=== PATIENT | female | born 1950 | race Caucasian/White ===

== ENCOUNTER 2020-09-06 11:59 | Emergency (ER) | payer OTHER ==
--- NOTE | 2020-09-06 13:14 | RAD REPORT ---
EXAM DESCRIPTION: CT - Ct Stroke Brain Wo Cont - 09/06/2020 1:01 pm CLINICAL HISTORY: DIZZINESS Headache, drowsiness, CVA symptomology COMPARISON: No comparisons TECHNIQUE: All CT scans are performed using dose optimization technique as appropriate and may inclu de automated exposure control or mA/KV adjustment according to patient size. FINDINGS: No intracranial hemorrhage, hydrocephalus or extra-axial fluid collection.No areas of brai n edema or evidence of midline shift. The paranasal sinuses and mastoids are clear. The calvarium is intact. IMPRESSION: No acute intracranial abnormality. The findings were discussed with Marie in the emergency room On 09/06/2020 at 1:05 p.m. by griffino brooke.
[2020-09-06 13:28] LABS: Absolute Lymphocytes (CBC) 1.7 K/uL (0.7-4.9); Basophils % 0.6 % (0-1.3); Lymphocytes % 27.9 % (15.3-44.8); MPV 7.8 fL (7.6-11.3); RBC Red Blood Cell Count 4.62 M/uL (3.86-4.86)
[2020-09-06 13:35] LABS: Protime INR 0.94
[2020-09-06 13:51] LABS: Potassium 3.9 mmol/L (3.5-5.1)
[2020-09-06 13:55] LABS: Urine Blood NEGATIVE (NEG); Urine Glucose NEGATIVE (NEG); Urine Protein NEGATIVE (NEG); Urine Specific Gravity 1.015 (1.005-1.030); Urine pH 7.5 (5.0-7.0)
--- NOTE | 2020-09-06 14:04 | RAD REPORT ---
EXAM DESCRIPTION: RAD - Chest Single View - 09/06/2020 1:50 pm CLINICAL HISTORY: dizziness COMPARISON: None TECHNIQUE: AP portable chest image was obtained 09/06/2020 1:50 pm . FINDINGS: Lungs are clear. Heart and vasculature are normal. No measurable pleural effusion and no p neumothorax. No acute bony abnormality seen. No acute aortic finding. Calcifications are present. Rig ht hemidiaphragm elevation is present. IMPRESSION: No acute cardiopulmonary process.
--- NOTE | 2020-09-06 14:19 | EDPHYS ---
Physician Documentation [facility] Name: Deyanira Caal Age: 69 yrs Sex: Female : 1950 Arrival Date: 09/06/2020 Time: 12:09 Bed 17 Private MD: ED Physician Jonnathan Wylie HPI: 09/06 13:27 This 69 yrs old Female presents to ER via EMS with complaints of Dizziness. kb 13:27 The patient presents with dizziness. Onset: The symptoms/episode began/occurred just kb prior to arrival. Context: occurred indoors, occurred while the patient was walking, just prior to the episode the patient experienced no apparent symptoms. Modifying factors: The symptoms are alleviated by nothing, the symptoms are aggravated by nothing. Associated signs and symptoms: The patient has no apparent associated signs or symptoms. Severity of symptoms: At their worst the symptoms were moderate in the emergency department the symptoms have resolved. Patient's baseline: Neuro: alert and fully oriented, Motor: no deficits, Ambulation: walks without assistance, Speech: normal. The patient has not experienced similar symptoms in the past. The patient has not recently seen a physician. Pt reports she was walking around an apartment when she became dizzy (room spinning) so she sat on the bed. States the dizziness subsided after 15-20 minutes. Reports symptoms have completely resolved at this time and has no complaints. No shortness of breath, syncope, fall, chest pain. . Historical: - Allergies: 12:14 Keflex; ph - Home Meds: 12:14 amlodipine oral [Active]; losartan oral oral [Active]; ph - PMHx: 12:14 Hypertension; ph - Immunization history:: Adult Immunizations not up to date. - Social history:: Smoking status: Patient/guardian denies using tobacco, the patient reports quitting approximately 37 years ago. ROS: 13:26 Constitutional: Negative for fever, chills, and weight loss, Cardiovascular: Negative kb for chest pain, palpitations, and edema, Respiratory: Negative for shortness of breath, cough, wheezing, and pleuritic chest pain, Abdomen/GI: Negative for abdominal pain, nausea, vomiting, diarrhea, and constipation, Back: Negative for injury and pain, MS/Extremity: Negative for injury and deformity, Skin: Negative for injury, rash, and discoloration. 13:26 Neuro: Positive for dizziness, Negative for altered mental status, gait disturbance, headache, hearing loss, loss of consciousness, numbness, seizure activity, speech changes, syncope, near syncope, tingling, tinnitus, tremor, visual changes, weakness. Exam: 13:26 Constitutional: This is a well developed, well nourished patient who is awake, alert, kb and in no acute distress. Head/Face: Normocephalic, atraumatic. Chest/axilla: Normal chest wall appearance and motion. Nontender with no deformity. No lesions are appreciated. Cardiovascular: Regular rate and rhythm with a normal S1 and S2. No gallops, murmurs, or rubs. Normal PMI, no JVD. No pulse deficits. Respiratory: Lungs have equal breath sounds bilaterally, clear to auscultation and percussion. No rales, rhonchi or wheezes noted. No increased work of breathing, no retractions or nasal flaring. Abdomen/GI: Soft, non-tender, with normal bowel sounds. No distension or tympany. No guarding or rebound. No evidence of tenderness throughout. Skin: Warm, dry with normal turgor. Normal color with no rashes, no lesions, and no evidence of cellulitis. MS/ Extremity: Pulses equal, no cyanosis. Neurovascular intact. Full, normal range of motion. Neuro: Awake and alert, GCS 15, oriented to person, place, time, and situation. Cranial nerves II-XII grossly intact. Motor strength 5/5 in all extremities. Sensory grossly intact. Cerebellar exam normal. Normal gait. 13:43 ECG was reviewed by the Attending Physician. Vital Signs: 12:09 BP 151 / 74; Pulse 68; Resp 18; Temp 98.3; Pulse Ox 95% on R/A; Weight 75.3 kg; Height ph 5 ft. 5 in. (165.10 cm); 13:47 BP 138 / 80; Pulse 65; Resp 18; Pulse Ox 100% on R/A; ph 14:42 BP 158 / 77; Pulse 69; Resp 16; Temp 97.9; Pulse Ox 100% on R/A; ph 12:09 Body Mass Index 27.62 (75.30 kg, 165.10 cm) ph MDM: 13:01 Patient medically screened. 13:26 Data reviewed: vital signs, nurses notes. Data interpreted: Pulse oximetry: on room air kb is 95 %. Interpretation: normal. 14:17 Counseling: I had a detailed discussion with the patient and/or guardian regarding: the kb historical points, exam findings, and any diagnostic results supporting the discharge/admit diagnosis, lab results, radiology results, the need for outpatient follow up, a family practitioner, to return to the emergency department if symptoms worsen or persist or if there are any questions or concerns that arise at home. 09/06 12:53 Order name: Basic Metabolic Panel; Complete Time: 13:52 sv 09/06 12:53 Order name: CBC with Diff; Complete Time: 13:39 sv 09/06 12:53 Order name: Protime (+inr); Complete Time: 13:49 sv 09/06 12:53 Order name: Ptt, Activated; Complete Time: 13:49 sv 09/06 13:22 Order name: Glucose, Ancillary Testing; Complete Time: 13:24 EDMS 09/06 13:24 Order name: Urine Dipstick--Ancillary (enter results); Complete Time: 13:59 eb 09/06 12:53 Order name: CT Stroke Brain w/o Contrast; Complete Time: 13:23 sv 09/06 12:53 Order name: Stroke CXR 1 View; Complete Time: 14:07 sv 09/06 12:53 Order name: EKG; Complete Time: 12:54 sv 09/06 12:53 Order name: Accucheck; Complete Time: 13:12 sv 09/06 12:53 Order name: Cardiac monitoring; Complete Time: 13:12 sv 09/06 12:53 Order name: EKG - Nurse/Tech; Complete Time: 13:39 sv 09/06 12:53 Order name: IV Saline Lock; Complete Time: 13:12 sv 09/06 12:53 Order name: Labs collected and sent; Complete Time: 13:12 sv 09/06 12:53 Order name: NPO; Complete Time: 13:12 sv 09/06 12:53 Order name: O2 Per Protocol; Complete Time: 13:12 sv 09/06 12:53 Order name: O2 Sat Monitoring; Complete Time: 13:12 sv 09/06 12:53 Order name: Stroke Swallow Screen; Complete Time: 13:46 sv EC: Rate is 64 beats/min. Rhythm is regular. QRS [place] is Normal. [place] interval is normal at kb 170 msec. QRS interval is normal at 84 msec. QT interval is normal at 426 msec. Administered Medications: No medications were administered Disposition: 15:47 Co-signature as Attending Physician, Jonnathan Wylie MD I agree with the assessment and kdr plan of care. Disposition: 09/06/20 14:18 Discharged to Home. Impression: Dizziness and giddiness. - Condition is Stable. - Discharge Instructions: Dizziness, [id number]. - Medication Reconciliation Form, Thank You Letter, Antibiotic Education, Prescription Opioid Use form. - Follow up: Emergency Department; When: As needed; Reason: Worsening of condition. Follow up: Private Physician; When: 2 - 3 days; Reason: Recheck today's complaints, Continuance of care, Re-evaluation by your physician. Signatures: Dispatcher [employer] EDPhoebe Caban, KIESHA-C APPRENTICE INSTRUMENT TECHNICIAN-Jia Prince, RN RN Jonnathan Escobar MD MD [facility] Keeley Wooten RN RN ph Corrections: (The following items were deleted from the chart) 14:57 14:18 09/06/2020 14:18 Discharged to Home. Impression: Dizziness and giddiness. ph Condition is Stable. Forms are Medication Reconciliation Form, Thank You Letter, Antibiotic Education, Prescription Opioid Use. Follow up: Emergency Department; When: As needed; Reason: Worsening of condition. Follow up: Private Physician; When: 2 - 3 days; Reason: Recheck today's complaints, Continuance of care, Re-evaluation by your physician. kb
--- NOTE | 2020-09-06 14:19 | ER ---
Nurse's Notes [facility] Name: Deyanira Caal Age: 69 yrs Sex: Female : 1950 Arrival Date: 09/06/2020 Time: 12:09 Bed 17 Private MD: Diagnosis: Dizziness and giddiness Presentation: 09/06 12:09 Chief complaint: EMS states: Pt reports that she was walking to the restroom when she ph had an episode of dizziness, felt unsteady but was assisted by granddaughter and did not fall, dizziness has since resolved, orthostatics negative, BP 140/60 HR 70s, EKG normal, pt denies chest pain, SOB, or weakness, reports headache in back of head, also states that she has "walked more than normal today". Coronavirus screen: Client denies travel out of the [place] in the last 14 days. Ebola Screen: No symptoms or risks identified at this time. Initial Sepsis Screen: Does the patient meet any 2 criteria? No. Patient's initial sepsis screen is negative. Does the patient have a suspected source of infection? No. Patient's initial sepsis screen is negative. Risk Assessment: Do you want to hurt yourself or someone else? Patient reports no desire to harm self or others. Onset of symptoms was September 06, 2020. 12:09 Method Of Arrival: EMS: [facility] 12:09 Acuity: SUSIE 3 ph Historical: - Allergies: 12:14 Keflex; ph - Home Meds: 12:14 amlodipine oral [Active]; losartan oral oral [Active]; ph - PMHx: 12:14 Hypertension; ph - Immunization history:: Adult Immunizations not up to date. - Social history:: Smoking status: Patient/guardian denies using tobacco, the patient reports quitting approximately 37 years ago. Screenin:14 Abuse screen: Denies threats or abuse. Denies injuries from another. Nutritional ph screening: No deficits noted. Tuberculosis screening: No symptoms or risk factors identified. Fall Risk No fall in past 12 months (0 pts). No secondary diagnosis (0 pts). IV access (20 points). Ambulatory Aid- None/Bed Rest/Nurse Assist (0 pts). Gait- Normal/Bed Rest/Wheelchair (0 pts) Mental Status- Oriented to own ability (0 pts). Total Zavaleta Fall Scale indicates No Risk (0-24 pts). 13:47 Patient has been NPO before screening. The patient is alert, able to follow commands. ph The patient does not exhibit slurred or garbled speech The patient is not exhibiting difficulty speaking. The patient does not exhibit difficulty understanding words. The patient is able to swallow own secretions with no drooling or need for suction. Patient tolerated one teaspoon of water. No drooling, immediate coughing, gurgling, or clearing of the throat was noted. The patient tolerated 90mL of water. No drooling, immediate coughing, gurgling, or clearing of the throat was noted. The patient passed the bedside swallow screening. Oral medications may be given as ordered. Contact Physician for further diet orders. Assessment: 12:15 General: Appears in no apparent distress. comfortable, well groomed, Behavior is calm, ph cooperative, appropriate for age, Denies fever, feeling ill. Pain: Complains of pain in occipital area. Neuro: Level of Consciousness is awake, alert, obeys commands, Oriented to person, place, time, situation, Reports dizziness, 1 episode at home, denies at this time headache occipital area, Denies weakness. Cardiovascular: Reports fatigue, lightheadedness, Denies chest pain, nausea, shortness of breath, vomiting, Rhythm is sinus rhythm. Respiratory: Airway is patent Respiratory effort is even, unlabored, Respiratory pattern is regular, symmetrical. GI: Patient currently denies abdominal pain, diarrhea, nausea, vomiting. Derm: Skin is intact, is healthy with good turgor, Skin is pink, warm \\T\\ dry. Musculoskeletal: Circulation, motion, and sensation intact. Range of motion: intact in all extremities. 12:55 Reassessment: Pt taken to CT, accompanied by Jia DIAZ. ph 13:00 Reassessment: Back from CT, pt needing to urinate before going back to the room. Urine sv sample obtained and taken to the room at 1304. 14:00 Reassessment: Patient appears in no apparent distress at this time. Patient and/or ph family updated on plan of care and expected duration. Pain level reassessed. Patient is alert, oriented x 3, equal unlabored respirations, skin warm/dry/pink. 14:54 Reassessment: Patient appears in no apparent distress at this time. Patient and/or ph family updated on plan of care and expected duration. Pain level reassessed. Patient is alert, oriented x 3, equal unlabored respirations, skin warm/dry/pink. Vital Signs: 12:09 BP 151 / 74; Pulse 68; Resp 18; Temp 98.3; Pulse Ox 95% on R/A; Weight 75.3 kg; Height ph 5 ft. 5 in. (165.10 cm); 13:47 BP 138 / 80; Pulse 65; Resp 18; Pulse Ox 100% on R/A; ph 14:42 BP 158 / 77; Pulse 69; Resp 16; Temp 97.9; Pulse Ox 100% on R/A; ph 12:09 Body Mass Index 27.62 (75.30 kg, 165.10 cm) ph Vitals: 13:47 Cardiac Rhythm Assessment Sinus rhythm. ph ED Course: 12:09 Patient arrived in ED. ph 12:13 Triage completed. ph 12:14 Arm band placed on Patient placed in an exam room, on a stretcher, on moss gatherer, ph on pulse oximetry. 12:15 Patient has correct armband on for positive identification. Placed in gown. Bed in low ph position. Call light in reach. Side rails up X 1. bicycle service technician on. Pulse ox on. NIBP on. Door closed. Noise minimized. Warm blanket given. 12:55 Keeley Wooten, EMILY is Primary Nurse. ph 13:01 Phoebe Mack FNP-C is PHCP. kb 13:01 Jonnathan Wylie MD is Attending Physician. kb 13:02 CT Stroke Brain w/o Contrast In Process Unspecified. EDMS 13:08 Urine collected: clean catch specimen, clear. sv 13:10 Inserted saline lock: 20 gauge in right antecubital area, using aseptic technique. ph Blood collected. 13:51 Stroke CXR 1 View In Process Unspecified. EDMS 14:42 No provider procedures requiring assistance completed. ph 14:55 IV discontinued, intact, bleeding controlled, No redness/swelling at site. Pressure ph dressing applied. Administered Medications: No medications were administered Outcome: 14:18 Discharge ordered by . kb 14:55 Discharged to home ambulatory, with family. ph 14:55 Condition: good 14:55 Discharge instructions given to patient, Instructed on discharge instructions, follow up and referral plans. Demonstrated understanding of instructions, follow-up care. 14:57 Patient left the ED. ph Signatures: Dispatcher [employer] EDPhoebe Caban, KIESHA-Grisel POP-Jia Prince, RN RN Keeley Wooten RN RN
[2020-09-06 15:05] VITALS: O2SAT 100
[2020-09-06 15:07] VITALS: BP 158/77; TEMP 97.9
--- NOTE | 2020-09-07 09:33 | EKG ---
Test Date: 2020-09-06 Test Time: 13:35:19 Ramp Jockey: ARNOL MEASUREMENT RESULTS: Intervals: Rate: 64 AK: 170 QRSD: 84 QT: 426 QTc: 439 [place]: P: 61 AK: 170 QRS: -10 T: 33 INTERPRETIVE STATEMENTS: Normal sinus rhythm Normal ECG No previous ECG available for comparison Electronically Signed On 09-07-20 09:30:58 CDT by Tahir Epstein
== END 2020-09-06 14:57 | disposition home or self-care (01) ==
LOC: ER 11:59
DX: R42 Dizziness and giddiness (principal); I10 Essential (primary) hypertension; Z88.1 Allergy status to other antibiotic agents
CPT/HCPCS: 36415; 70450; 71045; 80048; 81003; 82947; 85025; 85610; 85730; 93005; 99284

== ENCOUNTER 2022-11-25 10:07 | Emergency (ER) | payer OTHER ==
--- OUTSIDE RECORDS SUMMARY | 2022-11-25 10:19 | XMS REPORT | Continuity of Care Document ---
:1950 Author Organization [facility] t Address [address] [place] [address] Care Team Providers Name Role Phone Pcp, Patient Does Not Have A Primary Care Physician +[id number] [facility]_SWHATBIC_[facility] Attending Clinician Unavailable Doctor Unassigned, [place] Attending Clinician Unavailable Provider, [facility] Attending Clinician Unavailable Lianna Brown Attending Clinician LIANNA PATEL Attending Clinician Unavailable GC_TIFFANIEHATBIC_[facility]_S Admitting Clinician Unavailable Payers Payer Name Policy Type Policy Number Effective Date Expiration Date S ource MEDICARE [place]: [id number] 2013 [employer] 00:00:00 [facility] [id number] [facility] SHARED [id number] SERVICES - [facility] ([facility]) Problems Condition Condition Condition Status Onset Resolution Last Treating Co mments Source Name Details Category Date Date Treatment Clinician Date 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 11-20 ity of 00:00: [address] Primary Primary Disease Active 2016-11 Univers hyperparat hyperparat 11-20 [place] hy[place] Senile Senile Disease Active 2016-11 Univers osteoporos osteoporos 11-20 it y of is is 00:00: [address] 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 11-20 ity of nodules nodules 00:00: [place] 00 [facility] 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 5-24 it y of steremia steremia 00:00: [place] 00 [facility] Hypercalce Hypercalce Disease Active U kariwinter melchor jill 5-12 ity of 00:00: [place] 00 Medical [facility] Hyperlipid Hyperlipid Disease Active U bronson selma emia 4-12 ity of 00:00: [place] 00 Medical Branch Gout Gout Disease Active Univers 4-12 ity of 00:00: [place] 00 [facility] Essential Essential Disease Active Uni vers hypertensi hypertensi 4-12 it y of on on 00:00: [place] 00 Medical Branch Allergies, Adverse Reactions, Alerts Allergy Allergy Status Severity Reaction(s) Onset Inactive Treating Comm ents Source Name Type Date Date Clinician Cephalex Propensi Active Unknown - Uni vers in ty to See comments 02-24 ity of adverse 00:00: [place] reaction 00 Medical s Branch CEPHALEX DRUG Active Unknown-Cmnt Un zev IN INGREDI 02-24 ity of 00:00: [place] 00 [facility] Social History Social Habit Start Date Stop Date Quantity Comments Source History of tobacco Cigarette Smoker University of use [facility] [place] [facility] Exposure to Not sure University of SARS-CoV-2 (event) [facility] [place] [facility] Alcohol intake 2021-04-19 2021-04-19 1.43 /d University of 00:00:00 00:00:00 [facility] [place] [facility] Cigarettes smoked 2016-02-25 2016-02-25 Univers ity of current (pack per 00:00:00 00:00:00 ) - Reported Branch Cigarette 2016-02-25 2016-02-25 University of pack-years 00:00:00 00:00:00 [facility] [place] [facility] Tobacco use and 2016-02-25 2016-02-25 Never used Universit y of exposure 00:00:00 00:00:00 [facility] [place] [facility] Tobacco Comment 2016-02-25 2016-02-25 quit 32 years Univer sity of 00:00:00 00:00:00 ago [facility] [place] [facility] Sex Ass[birth year] At [birth year] Universit y of 00:00:00 00:00:00 [facility] [place] [facility] Smoking Status Start Date Stop Date Source Former smoker 2016-02-25 00:00:00 2016-02-25 00:00:00 [facility] Medical Branch Medications Ordered Filled Start Stop Current Ordering Indication Dosage Frequency Signature Comments Components Source Medication Medication Date Date Medication? Clinician (SIG) Name Name losartan Yes 100mg Take 100 Univ ers 100 mg 6-05 mg by ity of tablet 22:32: mouth [place] 44 daily. Medical Branch amLODIPine Yes 10mg Take 10 mg U nivers 10 mg 6-05 by mouth ity of tablet 22:32: daily. [place] [address] Medical Branch losartan Yes 100mg Take 100 Univ ers 100 mg 6-05 mg by ity of tablet 22:32: mouth [place] 44 daily. Medical Branch amLODIPine Yes 10mg Take 10 mg U nivers 10 mg 6-05 by mouth ity of tablet 22:32: daily. [place] [address] Medical Branch losartan Yes 100mg Take 100 Univ ers 100 mg 6-05 mg by ity of tablet 22:32: mouth [place] 44 daily. Medical Branch amLODIPine 0 Yes 10mg Take 10 mg U nivers 10 mg 6-05 by mouth ity of tablet 22:32: daily. [place] [address] Medical Branch losartan Yes 100mg Take 100 Univ ers 100 mg 6-05 mg by ity of tablet 22:32: mouth [place] 44 daily. Medical Branch amLODIPine Yes 10mg Take 10 mg U nivers 10 mg 6-05 by mouth ity of tablet 22:32: daily. [address] Branch losartan Yes 100mg Take 100 Univ ers 100 mg 6-05 mg by ity of tablet 22:32: mouth [place] 44 daily. Medical Branch amLODIPine Yes 10mg Take 10 mg U nivers 10 mg 6-05 by mouth ity of tablet 22:32: daily. [place] [address] Medical Branch losartan 0 Yes 100mg Take 100 Univ ers 100 mg 6-05 mg by ity of tablet 17:32: mouth [place] 44 daily. Medical Branch amLODIPine 0 Yes 10mg Take 10 mg U nivers 10 mg 6-05 by mouth ity of tablet 17:32: daily. [place] [address] Medical Branch fluconazole 2020-0 Yes [id number] One with Univers 150 mg 6-05 onset of ity of tablet 00:00: symptoms [place] 00 and repeat Medical at end of Branch antibiotic s fluconazole 2020- Yes [id number] One with Univers 150 mg 6-05 onset of ity of tablet 00:00: symptoms [place] 00 and repeat Medical at end of Branch antibiotic s fluconazole 2020- Yes [id number] One with Univers 150 mg 6-05 onset of ity of tablet 00:00: symptoms [place] 00 and repeat Medical at end of Branch antibiotic s fluconazole 2020-0 Yes [id number] One with Univers 150 mg 6-05 onset of ity of tablet 00:00: symptoms [place] 00 and repeat Medical at end of Branch antibiotic s fluconazole 2020- Yes [id number] One with Univers 150 mg 6-05 onset of ity of tablet 00:00: symptoms [place] 00 and repeat Medical at end of Branch antibiotic s fluconazole 2020- Yes [id number] One with Univers 150 mg 6-05 onset of ity of tablet 00:00: symptoms [place] 00 and repeat Medical at end of Branch antibiotic s amoxicillin 2020-2020- No [id number] 1{tbl} Take 1 Univers -clavulanat 6-05 06-16 tablet by it y of e 875-125 00:00: 04:59 [place] 2 [place] mg per 00 :00 (two) Medical tablet times Branch daily for 10 days. amoxicillin 2020-2020- No [id number] 1{tbl} Take 1 Univers -clavulanat 6-05 06-16 tablet by it y of e 875-125 00:00: 04:59 [place] 2 [place] mg per 00 :00 (two) Medical tablet times Branch daily for 10 days. amoxicillin 2020-2020- No [id number] 1{tbl} Take 1 Univers -clavulanat 6-05 06-16 tablet by it y of e 875-125 00:00: 04:59 [place] 2 [place] mg per 00 :00 (two) Medical tablet times Branch daily for 10 days. aspirin 81 2017- Yes 81mg Take 81 mg U nivers mg chewable 5-07 by mouth ity of tablet 15:27: daily. [address] aspirin 81 0 Yes 81mg Take 81 mg U nivers mg chewable 5-07 by mouth ity of tablet 15:27: daily. [address] aspirin 81 2017- Yes 81mg Take 81 mg U nivers mg chewable 5-07 by mouth ity of tablet 15:27: daily. [address] aspirin 81 2017-0 Yes 81mg Take 81 mg U nivers mg chewable 5-07 by mouth ity of tablet 15:27: daily. [address] aspirin 81 2018-0 Yes 81mg Take 81 mg U nivers mg chewable 5-07 by mouth ity of tablet 15:27: daily. [address] aspirin 81 0 Yes 81mg Take 81 mg U nivers mg chewable 5-07 by mouth ity of tablet 15:27: daily. [address] aspirin 81 0 Yes 81mg Take 81 mg U nivers mg chewable 5-07 by mouth ity of tablet 10:27: daily. [address] losartan 2017 Yes 100mg Take 100 Univ ers 100 mg 8-15 mg by ity of tablet 18:43: mouth [place] [address] daily. [facility] amLODIPine Yes 10mg Take 10 mg U nivers 10 mg 8-15 by mouth ity of tablet 18:43: daily. [address] Vital Signs Vital Name Observation Time Observation Value Comments Source Systolic blood 2021-04-19 22:35:00 162 mm[Hg] Univer sity of pressure [facility] [place] [facility] Diastolic blood 2021-04-19 22:35:00 71 mm[Hg] Unive rsity of pressure [facility] [place] [facility] Heart rate 2021-04-19 22:34:00 77 /min [facility] Body temperature 2021-04-19 22:34:00 37.17 [facility] Respiratory rate 2021-04-19 22:34:00 17 /min [facility] Body height 2021-04-19 22:34:00 165.1 cm [facility] Body weight 2021-04-19 22:34:00 81.647 kg [facility] BMI 2021-04-19 22:34:00 29.95 kg/m2 [facility] Oxygen saturation in 2021-04-19 22:34:00 98 /min [facility] blood by [facility] Pulse oximetry Branch Procedures Procedure Date / Time Performed Performing Clinician Sourc e EXTERNAL PROVIDER 2022-05-02 05:01:00 Doctor Unassigned, No [facility] RECORDS Name Medical Branch REFERRAL- 2021-07-08 05:01:00 Doctor Unassigned, No [facility] REQUEST/RESPONSE Name Medical Branch ASSIGNMENT OF BENEFITS 2021-04-19 22:29:18 Doctor Unassigned, No [facility] Name Medical Branch Encounters Start End Encounter Admission Attending Care Care Encounter Source Date/Time Date/Time Type Type Clinicians Facility Department ID 2022-11-10 2022-11-10 Outpatient GC_SWHATBIC PRIV PRIV [id number] [facility] 00:00:00 00:00:00 [facility] [id number] Medica l 2022-11-10 2022-11-10 Outpatient GC_SWHATBIC PRIV PRIV [id number] [facility] 00:00:00 00:00:00 _[facility] [id number] Medica l 2022-11-06 2022-11-06 Outpatient GC_SWHATBIC PRIV PRIV [id number] [facility] 00:00:00 00:00:00 _[facility]_S [id number] Medica l 2022-05-02 2022-05-02 Orders Doctor URIBE [id number] Univers 00:00:00 00:00:00 Only Unassigned, QUETA [id number] ity of [place] [facility] [id number] Willi as [phone] [address] 2021-07-08 2021-07-08 Orders Doctor URIBE [id number] Univers 00:00:00 00:00:00 Only Unassigned, QUETA [id number] ity of [place] [facility] [id number] Willi as [phone] [address] 2021-04-20 2021-04-20 Telephone Provider, [facility] [id number] [facility] 00:00:00 00:00:00 [facility] [id number] ity of Care [place] [id number] Willi as Professio [phone] [place] [address] Branch [address] 2021-04-19 2021-04-19 Urgent Provider, [facility] [id number] [facility] 17:29:44 17:49:44 [facility] [id number] ity of [place] [id number] Willi as Professio [phone] [facility] Branch Office [address] One 2021-04-19 2021-04-19 Outpatient R AMANDA [facility] [id number] [facility] 17:40:00 17:40:00 LIANNA ity [facility] 2021-04-19 2021-04-19 Orders Doctor JOJO [id number] [place] [address] 00:00:00 00:00:00 Only Unassigned, QUETA [id number] ity of [place] [facility] [id number] Willi as [phone] [place] [address] Branch Results This patient has no known results.
--- NOTE | 2022-11-25 10:50 | RAD REPORT ---
EXAM DESCRIPTION: CT - Head Brain Wo Cont - 11/25/2022 10:36 am CLINICAL HISTORY: Dizziness, non-specific Headache, drowsiness COMPARISON: Ct Stroke Brain Wo Cont dated 09/06/2020 TECHNIQUE: All CT scans are performed using dose optimization technique as appropriate and may inclu de automated exposure control or mA/KV adjustment according to patient size. FINDINGS: No intracranial hemorrhage, hydrocephalus or extra-axial fluid collection.No areas of brai n edema or evidence of midline shift. Mild vertebral atherosclerosis. The paranasal sinuses and mastoids are clear. The calvarium is intact. IMPRESSION: No acute intracranial abnormality.
[2022-11-25 12:26] LABS: Absolute Lymphocytes (CBC) 1.8 K/uL (0.7-4.9); Lymphocytes % 27.8 % (15.3-44.8); MCV 89.2 fL (80-100); MPV 7.1 fL (7.6-11.3)
[2022-11-25 12:31] LABS: Protime INR 0.97
--- NOTE | 2022-11-25 12:31 | RAD REPORT ---
EXAM DESCRIPTION: RAD - Chest Single View - 11/25/2022 12:23 pm CLINICAL HISTORY: dizzy Chest pain. COMPARISON: Chest Single View dated 09/06/2020 FINDINGS: Portable technique limits examination quality. The lungs are grossly clear. The heart is upper limit of normal in size. No displaced fractures. IMPRESSION: No acute intrathoracic process suspected.
[2022-11-25 12:46] LABS: ALT/SGPT 31 U/L (13-56); AST/SGOT 16 U/L (15-37); Albumin 4.1 g/dL (3.4-5.0); Alkaline Phosphatase 102 U/L (45-117); BUN Blood Urea Nitrogen 19 mg/dL (7-18); Bicarbonate 27 mmol/L (21-32); Bilirubin Total 0.4 mg/dL (0.2-1.0); Glomerular Filtration Rate 74 ml/min (=/>90); Glucose Level 104 mg/dL (74-106); Magnesium 2.5 mg/dL (1.6-2.4); Potassium 4.3 mmol/L (3.5-5.1); Protein, Total 7.6 g/dL (6.4-8.2); Sodium Level 136 mmol/L (136-145); Troponin High Sensitivity 4.6 pg/mL (<58.9)
[2022-11-25 12:47] LABS: Bilirubin Direct < 0.1 mg/dL (0-0.2)
[2022-11-25 12:51] LABS: Urine Blood Negative (Negative); Urine Glucose Negative (Negative); Urine Protein Negative (Negative); Urine Specific Gravity 1.015 (1.005-1.030)
--- NOTE | 2022-11-25 13:10 | EDPHYS ---
Physician Documentation [facility] Name: Deyanira Caal Age: 72 yrs Sex: Female : 1950 Arrival Date: 11/25/2022 Time: 10:09 Bed 27 Private MD: ED Physician Campos Hairston HPI: 11/25 11:46 This 72 yrs old Female presents to ER via Wheelchair with complaints of Blurred Vision, sp3 Dizziness, Headache. 11:46 72-year-old female with a history of hypertension presents with chief complaint sp3 headache diffuse in nature that started while she was driving with some mild "wavy blurry vision" which is now resolved. Patient has a mild headache remaining no visual changes have resolved. She denies any neck pain, chest pain, shortness of breath, back pain, abdominal pain, nausea, vomiting, diarrhea, syncope, near syncope, slurred speech, confusion as reported by friend who was in the car, weakness or numbness or any other symptoms on ROS at this time. Patient has no history of migraine or other headache types reported.. Historical: - Allergies: 10:19 Keflex; aa5 - PMHx: 10:19 Hypertension; aa5 - PSHx: 10:19 Parathyroid removed; aa5 - Immunization history:: Adult Immunizations unknown. - Social history:: Smoking status: Patient denies any tobacco usage or history of. ROS: 11:47 Constitutional: Negative for fever, chills, and weight loss, ENT: Negative for injury, sp3 pain, and discharge, Neck: Negative for injury, pain, and swelling, Cardiovascular: Negative for chest pain, palpitations, and edema, Respiratory: Negative for shortness of breath, cough, wheezing, and pleuritic chest pain, Abdomen/GI: Negative for abdominal pain, nausea, vomiting, diarrhea, and constipation, Back: Negative for injury and pain, MS/Extremity: Negative for injury and deformity, Skin: Negative for injury, rash, and discoloration, Psych: Negative for depression, anxiety, suicide ideation, homicidal ideation, and hallucinations, Allergy/Immunology: Negative for hives, rash, and allergies, Endocrine: Negative for neck swelling, polydipsia, polyuria, polyphagia, and marked weight changes, Hematologic/Lymphatic: Negative for swollen nodes, abnormal bleeding, and unusual bruising. Exam: 11:48 Constitutional: This is a well developed, well nourished patient who is awake, alert, sp3 and in no acute distress. Head/Face: Normocephalic, atraumatic. Eyes: Pupils equal round and reactive to light, extra-ocular motions intact. Lids and lashes normal. Conjunctiva and sclera are non-icteric and not injected. Cornea within normal limits. Periorbital areas with no swelling, redness, or edema. ENT: Nares patent. No nasal discharge, no septal abnormalities noted. External auditory canals are clear. Oropharynx with no redness, swelling, or masses, exudates, or evidence of obstruction, uvula midline. Mucous membranes moist. Neck: Trachea midline, no thyromegaly or masses palpated, and no cervical lymphadenopathy. Supple, full range of motion without nuchal rigidity, or vertebral point tenderness. No Meningismus. Chest/axilla: Normal chest wall appearance and motion. Nontender with no deformity. No lesions are appreciated. Cardiovascular: Regular rate and rhythm with a normal S1 and S2. No gallops, murmurs, or rubs. Normal PMI, no JVD. No pulse deficits. Respiratory: Lungs have equal breath sounds bilaterally, clear to auscultation and percussion. No rales, rhonchi or wheezes noted. No increased work of breathing, no retractions or nasal flaring. Abdomen/GI: Soft, non-tender, with normal bowel sounds. No distension or tympany. No guarding or rebound. No evidence of tenderness throughout. Back: No spinal tenderness. No costovertebral tenderness. Full range of motion. Skin: Warm, dry with normal turgor. Normal color with no rashes, no lesions, and no evidence of cellulitis. MS/ Extremity: Pulses equal, no cyanosis. Neurovascular intact. Full, normal range of motion. Neuro: Awake and alert, GCS 15, oriented to person, place, time, and situation. Cranial nerves II-XII grossly intact. Motor strength 5/5 in all extremities. Sensory grossly intact. Cerebellar exam normal. Normal gait. Psych: Awake, alert, with orientation to person, place and time. Behavior, mood, and affect are within normal limits. 12:30 ECG was reviewed by the Attending Physician. EKG demonstrates sinus bradycardia at 55 sp3 bpm with normal intervals, normal QRS, normal axis, normal ST/T-segment without evidence of acute ischemia. Vital Signs: 10:19 BP 153 / 78; Pulse 63; Resp 18 S; Temp 97.5(TE); Pulse Ox 96% on R/A; Weight 79.38 kg aa5 (R); Height 5 ft. 5 in. (165.10 cm) (R); 12:55 BP 138 / 68; Pulse 64; Resp 18; Pulse Ox 97% on R/A; ph 14:00 BP 132 / 70; Pulse 65; Resp 18; Temp 97.5; Pulse Ox 99% on R/A; ph 10:19 Body Mass Index 29.12 (79.38 kg, 165.10 cm) aa5 MDM: 11:42 Patient medically screened. sp3 11:48 Data reviewed: vital signs, nurses notes. ED course: 72-year-old with now resolving sp3 headache. Differential diagnosis includes general headache, ICH, SAH, atypical migraine, TIA, CVA metabolic derangement, among others. Patient's exam is completely normal and her symptoms are almost resolved. I am not highly suspicious for any of the aforementioned critical diagnoses. CT scan of the head is normal and laboratory values and urinalysis is pending to assess for remainder of possibilities. If work-up is negative, will discharge patient home. Patient is okay with the plan and has no further questions. She only requests Tylenol for pain control as she states that it is "barely there".. 13:08 ED course: Patient's work-up is negative including CT head all labs and chest x-ray as sp3 well as urinalysis. Symptoms are resolved and we will be discharging patient home to PCP follow-up with general precautions.. 11/25 11:34 Order name: Basic Metabolic Panel; Complete Time: 13:08 sp3 11/25 11:34 Order name: CBC with Diff; Complete Time: 13:08 sp3 11/25 11:34 Order name: Hepatic Function; Complete Time: 13:08 sp3 11/25 11:34 Order name: Magnesium; Complete Time: 13:08 sp3 11/25 11:34 Order name: Protime (+inr); Complete Time: 13:08 sp3 11/25 11:34 Order name: Ptt, Activated; Complete Time: 13:08 sp3 11/25 10:26 Order name: Head Brain Wo Cont; Complete Time: 11:34 EDMS 11/25 11:26 Order name: EKG - Nurse/Tech; Complete Time: 11:26 ph 11/25 11:34 Order name: Troponin High Sensitivity; Complete Time: 13:08 sp3 11/25 11:34 Order name: Chest Single View XRAY; Complete Time: 13:08 sp3 11/25 11:34 Order name: EKG; Complete Time: 11:35 sp3 11/25 12:52 Order name: Urine Dipstick-Ancillary; Complete Time: 13:08 EDMS 11/25 11:34 Order name: Cardiac monitoring; Complete Time: 12:45 sp3 11/25 11:34 Order name: EKG - Nurse/Tech; Complete Time: 12:45 sp3 11/25 11:34 Order name: IV Saline Lock; Complete Time: 12:45 sp3 11/25 11:34 Order name: Labs collected and sent; Complete Time: 12:45 sp3 11/25 11:34 Order name: NPO; Complete Time: 12:45 sp3 11/25 11:34 Order name: O2 Per Protocol; Complete Time: 12:45 sp3 11/25 11:34 Order name: O2 Sat Monitoring; Complete Time: 12:45 sp3 11/25 11:34 Order name: Urine Dipstick-Ancillary (obtain specimen); Complete Time: 12:45 sp3 Administered Medications: 12:51 Drug: Tylenol 650 mg Route: PO; ph 14:00 Follow up: Response: No adverse reaction ph Disposition Summary: 11/25/22 13:09 Discharge Ordered Location: Home sp3 Condition: Stable sp3 Diagnosis - Headache sp3 Followup: sp3 - With: Private Physician - When: Upon discharge from the Emergency Department - Reason: Continuance of care Discharge Instructions: - Discharge Summary Sheet sp3 - General Headache Without Cause sp3 Forms: - Medication Reconciliation Form sp3 - Thank You Letter sp3 - Antibiotic Education sp3 - Prescription Opioid Use sp3 Signatures: Dispatcher [employer] Jada Fay RN RN aa5 Keeley Wooten RN RN ph Campos Hairston MD MD sp3
--- NOTE | 2022-11-25 13:10 | ER ---
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 Pt currently c/o dizziness and "feeling like I was slapped to the back of my head". 10:19 Coronavirus screen: At this time, the client does not indicate any symptoms associated aa5 with coronavirus-19. Ebola Screen: Patient denies travel to an Ebola-affected area in the 21 days before illness onset. Initial Sepsis Screen: Does the patient meet any 2 criteria? No. Patient's initial sepsis screen is negative. Does the patient have a suspected source of infection? No. Patient's initial sepsis screen is negative. Risk Assessment: Do you want to hurt yourself or someone else? Patient reports no desire to harm self or others. Onset of symptoms was November 25, 2022. 10:19 Acuity: SUSIE 2 aa5 10:19 Method Of Arrival: Wheelchair aa5 Triage Assessment: 14:01 Headache History: The patient has had previous headaches and this one is different than ph previous episodes. Historical: - Allergies: 10:19 Keflex; aa5 - PMHx: 10:19 Hypertension; aa5 - PSHx: 10:19 Parathyroid removed; aa5 - Immunization history:: Adult Immunizations unknown. - Social history:: Smoking status: Patient denies any tobacco usage or history of. Screenin:30 [facility] ED Fall Risk Assessment (Adult) History of falling in the last 3 months, ph including since admission No falls in past 3 months (0 pts) Confusion or Disorientation No (0 pts) Intoxicated or Sedated No (0 pts) Impaired Gait Yes (1 pt) Mobility Assist Device Used No (0 pt) Altered Elimination No (0 pt) Score/Fall Risk Level 0 - 2 = Low Risk. Abuse screen: Denies threats or abuse. Denies injuries from another. Nutritional screening: No deficits noted. Tuberculosis screening: No symptoms or risk factors identified. Assessment: 10:33 Reassessment: Pt taken to CT via stretcher. ph 10:38 Reassessment: Pt returned from CT. ph 11:00 General: Appears in no apparent distress. comfortable, well groomed, Behavior is calm, ph cooperative, appropriate for age, Denies fever, feeling ill. Pain: Complains of pain in occipital area. Neuro: Level of Consciousness is awake, alert, obeys commands, Oriented to person, place, time, situation, Reports dizziness, headache occipital area. Cardiovascular: Reports lightheadedness, Denies chest pain, Capillary refill < 3 seconds in bilateral fingers Patient's skin is warm and dry. Respiratory: Airway is patent Respiratory effort is even, unlabored. GI: No signs and/or symptoms were reported involving the gastrointestinal system. Derm: Skin is healthy with good turgor, Skin is pink, warm \\T\\ dry. Musculoskeletal: Circulation, motion, and sensation intact. Range of motion: intact in all extremities. 12:30 Reassessment: Patient appears in no apparent distress at this time. Patient and/or ph family updated on plan of care and expected duration. Pain level reassessed. Patient is alert, oriented x 3, equal unlabored respirations, skin warm/dry/pink. 14:00 Reassessment: Patient appears in no apparent distress at this time. Patient and/or ph family updated on plan of care and expected duration. Pain level reassessed. Patient is alert, oriented x 3, equal unlabored respirations, skin warm/dry/pink. Vital Signs: 10:19 BP 153 / 78; Pulse 63; Resp 18 S; Temp 97.5(TE); Pulse Ox 96% on R/A; Weight 79.38 kg aa5 (R); Height 5 ft. 5 in. (165.10 cm) (R); 12:55 BP 138 / 68; Pulse 64; Resp 18; Pulse Ox 97% on R/A; ph 14:00 BP 132 / 70; Pulse 65; Resp 18; Temp 97.5; Pulse Ox 99% on R/A; ph 10:19 Body Mass Index 29.12 (79.38 kg, 165.10 cm) aa5 ED Course: 10:09 Patient arrived in ED. am2 10:19 Arm band placed on. aa5 10:21 Triage completed. aa5 10:27 Keeley Wooten, RN is Primary Nurse. ph 10:33 Patient has correct armband on for positive identification. Bed in low position. Call ph light in reach. Side rails up X 1. Client placed on continuous cardiac and pulse oximetry monitoring. NIBP monitoring applied. Door closed. Noise minimized. Warm blanket given. 10:37 Head Brain Wo Cont In Process Unspecified. EDMS 11:01 Campos Hairston MD is Attending Physician. sp3 11:14 EKG done, by ED staff, reviewed by Campos Hairston MD. jw7 12:15 Initial lab(s) drawn, by il, sent to lab. Inserted saline lock: 20 gauge in right ph antecubital area, using aseptic technique. Blood collected. 12:25 Chest Single View XRAY In Process Unspecified. EDMS 14:01 No provider procedures requiring assistance completed. IV discontinued, intact, ph bleeding controlled, No redness/swelling at site. Pressure dressing applied. Administered Medications: 12:51 Drug: Tylenol 650 mg Route: PO; ph 14:00 Follow up: Response: No adverse reaction ph Medication: 10:34 VIS not applicable for this client. ph Outcome: 13:09 Discharge ordered by . sp3 14:01 Discharged to home ambulatory, with family. ph 14:01 Condition: good 14:01 Discharge instructions given to patient, family, Instructed on discharge instructions, follow up and referral plans. Demonstrated understanding of instructions, follow-up care. 14:01 Patient left the ED. ph Signatures: Dispatcher [employer] EDKY Jada Maravilla, RN RN aa Keeley Wooten, RN RN Linh Bess [facility] Campos Hairston MD MD sp3 Malathi Fan jw7
[2022-11-25 14:43] VITALS: TEMP 97.5
[2022-11-25 14:45] VITALS: BP 132/70; O2SAT 99
--- NOTE | 2022-11-25 14:51 | EKG ---
Test Date: 2022-11-25 Test Time: 11:10:20 Section Plotter Operator: MAHIN MEASUREMENT RESULTS: Intervals: Rate: 55 DC: 178 QRSD: 88 QT: 426 QTc: 407 [place]: P: 58 DC: 178 QRS: 21 T: 55 INTERPRETIVE STATEMENTS: Sinus bradycardia Otherwise normal ECG Compared to ECG 09/06/2020 13:35:19 Sinus rhythm no longer present Electronically Signed On 11-25-22 14:50:19 SENIOR TAX SPECIALIST by Geoffrey Dutta
== END 2022-11-25 14:01 | disposition home or self-care (01) ==
LOC: ER 10:07
DX: R51.9 Headache, unspecified (principal); R42 Dizziness and giddiness; I10 Essential (primary) hypertension; Z88.8 Allergy status to other drugs, medicaments and biological substances
CPT/HCPCS: 36415; 70450; 71045; 80048; 80076; 81003; 83735; 84484; 85025; 85610; 85730; 93005; 99284

== ENCOUNTER 2024-03-08 23:10 | Emergency (ER) | payer OTHER ==
--- OUTSIDE RECORDS SUMMARY | 2024-03-08 23:13 | XMS REPORT | Continuity of Care Document ---
Author Name Unknown Address [address] [facility] [address] [place] [address] [facility] thconnect Address [address] [facility] [address] [place] [address] Care Team Providers Care Casting Finisher Name Role Phone Pcp, Patient Does Not Have A Primary Care Physic dia [facility] Attending Clinician Unavailab le Doctor Unassigned, [place] Attending Clinician U navailable Provider, [facility] Attending Clinician Un available Lauren Brown Attending Clinician [phone] LAUREN PATEL Attending Clinician Unavailable [facility] Admitting Clinician Unavailab le Payers Payer Name Policy Type Policy Number Effective Date Expirati on Date Source MEDICARE [place]: [id number] 2013 00:00:00 [facility] (O) [id number] FORMERLY [facility] SHARED [facility] - [facility] (O) [id number] Problems Condition Name Condition Details Condition Category Status Onset Date Resolution Date Last Treatment Date Treating Clinician Comments Source Parathyroi d adenoma Parathyroi d adenoma Disease Active 2016-11 00:00: 00 [facility] Primary hyperparat hyroidism Primary hyperparat hyroidism Disease Active 2016-11 00:00: 00 [facility] Senile osteoporos is Senile osteoporos is Disease Active 2016-11 00:00: 00 [facility] Multiple thyroid nodules Multiple thyroid nodules Disease Active 2016-11 00:00: 00 [facility] Familial hyperchole steremia Familial hyperchole steremia Disease Active 04-07 00:00: 00 [facility] Hypercalce jlil Hypercalce jill Disease Active 03-26 00:00: 00 [facility] Hyperlipid emia Hyperlipid emia Disease Active 02-24 00:00: 00 [facility] Gout Gout Disease Active 02-24 00:00: 00 [facility] Essential hypertensi on Essential hypertensi on Disease Active 02-24 00:00: 00 [facility] Allergies, Adverse Reactions, Alerts Allergy Name Allergy Type Status Severity Reaction(s) Onset Date Inactive Date Treating Clinician Comments Source Cephalex in Propensi ty to adverse reaction s Active Unknown - See comments 02-24 00:00: 00 [facility] CEPHALEX IN DRUG INGREDI Active Unknown-Cmnt 02-24 00:00: 00 [facility] Social History Social Habit Start Date Stop Date Quantity Comments Source History of tobacco use Cigarette Smoker [facility] Exposure to SARS-CoV-2 (event) Not sure [facility] Alcohol intake 2021-04-19 00:00:00 2021-04-19 00:00:00 1.43 /d [facility] Cigarettes smoked current (pack per day) - Reported 2016-02-25 00:00:00 2016-02-25 00:00:00 [facility] Cigarette pack-years 2016-02-25 00:00:00 2016-02-25 00:00:00 [facility] Tobacco use and exposure 2016-02-25 00:00:00 2016-02-25 00:00:00 Smokeless tobacco non-user [facility] Tobacco Comment 2016-02-25 00:00:00 2016-02-25 00:00:00 quit 32 years ago [facility] Sex Assigned At 1950 00:00:00 1950 00:00:00 [facility] Smoking Status Start Date Stop Date Source Ex-smoker 2016-02-25 00:00:2016-02-25 [facility]00[facility]ations Ordered Medication Name Filled Medication Name Start Date Stop Date Current Medication? Ordering Clinician Indication Dosage Frequency Signature (SIG) Comments Components Source losartan 100 mg tablet 04-19 22:32: 44 Yes 100mg Take 100 mg by mouth daily. [facility] amLODIPine 10 mg tablet 04-19 22:32: 44 Yes 10mg Take 10 mg by mouth daily. [facility] losartan 100 mg tablet 04-19 17:32: 44 Yes 100mg Take 100 mg by mouth daily. [facility] amLODIPine 10 mg tablet 04-19 17:32: 44 Yes 10mg Take 10 mg by mouth daily. [facility] fluconazole 150 mg tablet 04-19 00:00: 00 Yes [id number] One with onset of symptoms and repeat at end of antibiotic s [facility] amoxicillin -clavulanat e 875-125 mg per tablet 04-19 00:00: 00 04-30 04:59 :00 No [id number] 1{tbl} Take 1 tablet by mouth 2 (two) times daily for [address] [facility] aspirin 81 mg chewable tablet 03-21 15:27: 08 Yes 81mg Take 81 mg by mouth daily. [facility] aspirin 81 mg chewable tablet 03-21 10:27: 08 Yes 81mg Take 81 mg by mouth daily. [facility] losartan 100 mg tablet 06-29 18:43: 07 Yes 100mg Take 100 mg by mouth daily. [facility] amLODIPine 10 mg tablet 06-29 18:43: 07 Yes 10mg Take 10 mg by mouth daily. [facility] Vital Signs Vital Name Observation Time Observation Value Comments S benson Systolic blood pressure 2021-04-19 22:35:00 162 mm[Hg] [facility] Diastolic blood pressure 2021-04-19 22:35:00 71 mm[Hg] [facility] Heart rate 2021-04-19 22:34:00 77 /min [facility] Body temperature 2021-04-19 22:34:00 37.17 Kay [facility] Respiratory rate 2021-04-19 22:34:00 17 /min [facility] Body height 2021-04-19 22:34:00 165.1 cm [facility] Body weight 2021-04-19 22:34:00 81.647 kg [facility] BMI 2021-04-19 22:34:00 29.95 kg/m2 [facility] Oxygen saturation in Arterial blood by Pulse oximetry 2021-04-19 22:34:00 98 /min [place] [facility] Procedures Procedure Date / Time Performed Performing Clinicia n Source REFERRAL- REQUEST/RESPONSE 2023-01-20 06:01:00 Doctor Unassigned, [place] [facility] EXTERNAL PROVIDER RECORDS 2022-05-02 05:01:00 Doctor Unassigned, [place] [facility] REFERRAL- REQUEST/RESPONSE 2021-07-08 05:01:00 Doctor Unassigned, [place] [facility] ASSIGNMENT OF BENEFITS 2021-04-19 22:29:18 Docto r Unassigned, [place] [facility] Encounters Start Date/Time End Date/Time Encounter Type Admission Type Attending Clinicians Care Facility Care Department Encounter ID Source 2023-12-24 00:00:00 2023-12-24 00:00:00 Outpatient [facility] PRIV PRIV [id number] [facility] 2023-01-20 00:00:00 2023-01-20 00:00:00 Orders Only Doctor Unassigned, [place] [facility] [id number] [facility] 2022-11-10 00:00:00 2022-11-10 00:00:00 Outpatient [facility] PRIV PRIV [id number] [facility] 2022-11-10 00:00:00 2022-11-10 00:00:00 Outpatient [facility] PRIV PRIV [id number] [facility] 2022-11-06 00:00:00 2022-11-06 00:00:00 Outpatient [facility] [id number] [facility] 2022-05-02 00:00:00 2022-05-02 00:00:00 Orders Only Doctor Unassigned, [place] [facility] [id number] [facility] 2021-07-08 00:00:00 2021-07-08 00:00:00 Orders Only Doctor Unassigned, [place] [facility] [id number] [facility] 2021-04-20 00:00:00 2021-04-20 00:00:00 Telephone Provider, [facility] [address] [id number] [facility] 2021-04-19 17:29:44 2021-04-19 17:49:44 Urgent Care Provider, [facility] [id number] [facility] 2021-04-19 17:40:00 2021-04-19 17:40:00 Outpatient R AMANDA [facility] [id number] [facility] 2021-04-19 00:00:00 2021-04-19 00:00:00 Orders Only Doctor Unassigned, [place] [facility] [id number] [facility]
[2024-03-08] MEDS ORDERED: HYDROCODONE/APAP 5/325 MG TAB ONE (23:26)
--- NOTE | 2024-03-09 00:52 | EDPHYS ---
Physician Documentation [facility] Name: Deyanira Caal Age: 73 yrs Sex: Female : 1950 Arrival Date: 03/08/2024 Time: 23:10 Bed 5 Private MD: ED Physician Juan Martinez HPI: 03/08 23:30 This 73 yrs old Female presents to ER via EMS with complaints of Fall Injury. cp 23:30 Details of fall: The patient fell from an upright position, while walking, and struck a cp tile surface. Onset: The symptoms/episode began/occurred just prior to arrival. Associated injuries: The patient sustained left shoulder, decreased range of motion, painful injury. Severity of symptoms: in the emergency department the symptoms are unchanged, despite EMS interventions. Historical: - Allergies: 23:23 Keflex; tm6 - PMHx: 23:23 Hypertension; Hypercholesterolemia; tm6 - PSHx: 23:23 Parathyroid removed; tm6 23:24 Total abdominal hysterectomy; tm6 - Immunization history:: Adult Immunizations up to date, Client reports receiving the Luke \T\ Luke single-dose vaccine. Flu vaccine is not up to date. - Infectious Disease History:: Denies. - Social history:: Smoking status: Patient/guardian denies using tobacco, the patient reports quitting approximately 40 years ago, Patient uses alcohol, occasionally. Patient/guardian denies using street drugs. ROS: 23:33 MS/extremity: Positive for injury or acute deformity, decreased range of motion, pain, cp tenderness, Negative for paresthesias, 23:33 Neck: Negative for pain with movement, pain at rest, stiffness, tenderness, bony cp tenderness, 23:33 Cardiovascular: Negative for chest pain, 23:33 Constitutional: Negative for body aches, chills, fever, poor PO intake, cp 23:33 Respiratory: Negative for cough, shortness of breath, wheezing, cp 23:33 Abdomen/GI: Negative for abdominal pain, vomiting, diarrhea, constipation, 23:33 Back: Negative for pain at rest, pain with movement, 23:33 Neuro: Negative for altered mental status, dizziness, headache, loss of consciousness, numbness, syncope, near syncope, weakness, 23:33 All other systems are negative, Exam: 23:37 Constitutional: The patient appears in no acute distress, alert, awake, cp non-diaphoretic, non-toxic, well developed, well nourished, uncomfortable, 23:37 Head/Face: Normocephalic, atraumatic. cp 23:37 Eyes: Periorbital structures: appear normal, Pupils: equal, round, and reactive to light and accomodation, Extraocular movements: intact throughout, Sclera: no appreciated abnormality, Lids and lashes: appear normal, bilaterally, 23:37 ENT: External ear(s): are unremarkable, Nose: is normal, Mouth: Lips: moist, Oral mucosa: moist, Posterior pharynx: Airway: no evidence of obstruction, patent, 23:37 Neck: C-spine: vertebral tenderness, is not appreciated, crepitus, is not appreciated, ROM/movement: is normal, is supple, without pain, no range of motions limitations, 23:37 Chest/axilla: Inspection: normal, Palpation: is normal, no crepitus, no tenderness, Vital Signs: 23:20 BP 157 / 81; Pulse 73; Resp 19; Temp 97.8(O); Pulse Ox 99% on R/A; Weight 79.38 kg (R); tm6 Height 5 ft. 4 in. (R); Pain 9/10; 23:59 BP 134 / 77; Pulse 71; Resp 17; Pulse Ox 100% on R/A; rv 03/09 00:18 Pain 8/10; tm6 00:45 BP 100 / 88; Pulse 75; Resp 16; Pulse Ox 100% on R/A; rv 03/08 23:20 Body Mass Index 30.04 (79.38 kg, 162.56 cm) tm6 03/08 23:20 Pain Scale: Adult tm6 03/09 00:18 Pain Scale: Adult tm6 MDM: 03/08 23:20 Patient medically screened. cp 03/08 23:24 Order name: XRAY Chest (1 view) cp 03/08 23:24 Order name: XRAY Humerus LEFT cp 03/08 23:24 Order name: IV; Complete Time: 23:25 cp 03/09 00:17 Order name: Shoulder Immobilizer; Complete Time: 00:36 cp Administered Medications: 23:29 Not Given (Patient Refused): fentanyl (pf)25 mcg IVP once rv 23:29 Drug: HYDROcodone-acetaminophen PO 5 mg-325 mg 1 tabs PO once Route: PO; rv 03/09 01:03 Follow up: Response: No adverse reaction tm6 Disposition Summary: 03/09/24 00:51 Discharge Ordered Notes: Location: Home cp Problem: new cp Symptoms: have improved cp Condition: Stable cp Diagnosis - Fracture of upper end of humerus - Comminuted fractures left proximal humeral neck cp and head Followup: cp - With: Minesh Nielsen MD - When: 2 - 3 days - Reason: Recheck today's complaints Discharge Instructions: - Discharge Summary Sheet cp - Humerus Fracture Treated With Immobilization cp Forms: - Medication Reconciliation Form cp - Antibiotic Education cp - Prescription Opioid Use cp - Patient Portal Instructions cp - Leadership Thank You Letter cp Prescriptions: - acetaminophen-codeine 300-30 mg Oral tablet - take 2 tablet ORAL route every 8 hours as needed for pain; 14 tablet; Refills: cp 0, Product Selection Permitted - Zofran 4 mg Oral Tablet - take 1 tablet ORAL route every 12 hours As needed; 20 tablet; Refills: 0, cp Product Selection Permitted Signatures: Dispatcher [employer] EDMS Juan Fenton PA PA cp Julien Laird RN RN rv Camille Bullock RN RN tm6 Corrections: (The following items were deleted from the chart) 03/08 23:24 23:23 PSHx: hysterectomy; tm6 tm6 23:25 23:25 Humerus Left+RAD.RAD.BRZ ordered. EDMS EDMS
--- NOTE | 2024-03-09 00:52 | ER ---
Nurse's Notes [facility] Name: Deyanira Caal Age: 73 yrs Sex: Female : 1950 Arrival Date: 03/08/2024 Time: 23:10 Bed 5 Private MD: Diagnosis: Fracture of upper end of humerus-Comminuted fractures left proximal humeral neck and head Presentation: 03/08 23:20 Chief complaint: EMS states: patient tripped on a step in her home. No LOC. Not on tm6 blood thinners. Patient is complaining of 9/10 pain in left shoulder. Coronavirus screen: Vaccine status: Patient reports receiving the 2nd dose of the covid vaccine. Ebola Screen: Patient negative for fever greater than or equal to 101.5 degrees Fahrenheit, and additional compatible Ebola Virus Disease symptoms Patient denies exposure to infectious person. Patient denies travel to an Ebola-affected area in the 21 days before illness onset. No symptoms or risks identified at this time. Initial Sepsis Screen: Does the patient meet any 2 criteria? No. Patient's initial sepsis screen is negative. Does the patient have a suspected source of infection? No. Patient's initial sepsis screen is negative. Risk Assessment: Do you want to hurt yourself or someone else? Patient reports no desire to harm self or others. Onset of symptoms was March 08, 2024. 23:20 Method Of Arrival: EMS: [facility] tm6 23:20 Acuity: SUSIE 3 tm6 23:20 Care prior to arrival: Medication(s) given: Tylenol, 975mg. tm6 Triage Assessment: 23:24 General: Appears uncomfortable, Behavior is calm, cooperative. Pain: Complains of pain tm6 in anterior aspect of left shoulder and posterior aspect of left shoulder Pain does not radiate. Pain currently is 9 out of 10 on a pain scale. Aggravated by repositioning. EENT: No signs and/or symptoms were reported regarding the EENT system. Neuro: Level of Consciousness is awake, alert, obeys commands, Oriented to person, place, time, situation. Cardiovascular: No deficits noted. Capillary refill < 3 seconds Patient's skin is warm and dry. Respiratory: Airway is patent Respiratory effort is even, unlabored, Respiratory pattern is regular, symmetrical. GI: No signs and/or symptoms were reported involving the gastrointestinal system. Abdomen is flat, non-distended. : No signs and/or symptoms were reported regarding the genitourinary system. Derm: No signs and/or symptoms reported regarding the dermatologic system. Derm: Skin is intact. Musculoskeletal: Reports pain in anterior aspect of left shoulder and posterior aspect of left shoulder Pain is 9 out of 10 on a pain scale. Historical: - Allergies: 23:23 Keflex; tm6 - PMHx: 23:23 Hypertension; Hypercholesterolemia; tm6 - PSHx: 23:23 Parathyroid removed; tm6 23:24 Total abdominal hysterectomy; tm6 - Immunization history:: Adult Immunizations up to date, Client reports receiving the Luke \T\ Luke single-dose vaccine. Flu vaccine is not up to date. - Infectious Disease History:: Denies. - Social history:: Smoking status: Patient/guardian denies using tobacco, the patient reports quitting approximately 40 years ago, Patient uses alcohol, occasionally. Patient/guardian denies using street drugs. Screenin:26 [facility] ED Fall Risk Assessment (Adult) History of falling in the last 3 months, tm6 including since admission Yes- single mechanical fall (1 pt) Confusion or Disorientation No (0 pts) Intoxicated or Sedated No (0 pts) Impaired Gait No (0 pts) Mobility Assist Device Used No (0 pt) Altered Elimination No (0 pt) Score/Fall Risk Level 0 - 2 = Low Risk Oriented to surroundings, Maintained a safe environment. Abuse screen: Denies threats or abuse. Denies injuries from another. Nutritional screening: No deficits noted. Tuberculosis screening: No symptoms or risk factors identified. Assessment: 23:26 Reassessment: see triage assessment. tm6 03/09 00:17 Reassessment: Patient and/or family updated on plan of care and expected duration. Pain tm6 level reassessed. Patient is alert, oriented x 3, equal unlabored respirations, skin warm/dry/pink. 01:11 Reassessment: Patient and/or family updated on plan of care and expected duration. Pain rv level reassessed. Patient is alert, oriented x 3, equal unlabored respirations, skin warm/dry/pink. Vital Signs: 03/08 23:20 BP 157 / 81; Pulse 73; Resp 19; Temp 97.8(O); Pulse Ox 99% on R/A; Weight 79.38 kg (R); tm6 Height 5 ft. 4 in. (R); Pain 9/10; 23:59 BP 134 / 77; Pulse 71; Resp 17; Pulse Ox 100% on R/A; rv 03/09 00:18 Pain 8/10; tm6 00:45 BP 100 / 88; Pulse 75; Resp 16; Pulse Ox 100% on R/A; rv 03/08 23:20 Body Mass Index 30.04 (79.38 kg, 162.56 cm) tm6 03/08 23:20 Pain Scale: Adult tm6 03/09 00:18 Pain Scale: Adult tm6 ED Course: 03/08 23:12 Patient arrived in ED. jj6 23:20 Juan Fenton PA is PHCP. cp 23:20 Juan Martinez MD is Attending Physician. cp 23:20 Camille Bullock, EMILY is Primary Nurse. tm6 23:22 Triage completed. tm6 23:24 Arm band placed on right wrist. tm6 23:26 Patient has correct armband on for positive identification. Placed in gown. Bed in low tm6 position. Call light in reach. Side rails up X2. Provided Education on: plan of care. Client placed on continuous cardiac and pulse oximetry monitoring. NIBP monitoring applied. lunchroom monitor on. Pulse ox on. NIBP on. Door closed. Noise minimized. Warm blanket given. 23:40 No provider procedures requiring assistance completed. Patient did not have IV access rv during this emergency room visit. 03/09 00:05 XRAY Chest (1 view) In Process Unspecified. EDMS 00:05 XRAY Humerus LEFT In Process Unspecified. EDMS 00:43 Minesh Nielsen MD is Referral Physician. cp 01:03 Shoulder immobilizer applied on left shoulder. tm6 Administered Medications: 03/08 23:29 Not Given (Patient Refused): fentanyl (pf)25 mcg IVP once rv 23:29 Drug: HYDROcodone-acetaminophen PO 5 mg-325 mg 1 tabs PO once Route: PO; rv 03/09 01:03 Follow up: Response: No adverse reaction tm6 Medication: 03/08 23:26 VIS not applicable for this client. tm6 Outcome: 03/09 00:51 Discharge ordered by . cp 01:11 Discharged to home ambulatory, with family, rv 01:11 Condition: good 01:11 Discharge instructions given to patient, family, Instructed on discharge instructions, follow up and referral plans. medication usage, Demonstrated understanding of instructions, follow-up care, medications, Prescriptions given X 2, 01:12 Patient left the ED. rv Signatures: Dispatcher [employer] EDMS Juan Fenton PA PA cp Vicente, Ronaldo, RN RN rv Kierra [email or web address] Camille Bullock RN RN tm6 Corrections: (The following items were deleted from the chart) 03/08 23:24 23:23 PSHx: hysterectomy; tm6 tm6
[2024-03-09 01:26] VITALS: BP 100/88; TEMP 97.8; O2SAT 100
--- NOTE | 2024-03-09 11:58 | RAD REPORT ---
EXAM DESCRIPTION: Chest Single View CLINICAL HISTORY: 73 years Female, fall TECHNIQUE: 1 view (Single frontal view of the chest) COMPARISON: None. FINDINGS: LINES AND TUBES: None. CARDIOVASCULAR STRUCTURES: Normal heart size. No pulmonary venous congestion. LUNGS: Moderately elevated right hemidiaphragm which may mask underlying right lower lobe pathology. No confluent areas of acute consolidation. PLEURA: No layering pleural effusions. No pneumothorax. BONES: Acute comminuted fractures left proximal humeral neck and head.. No acute osseous abnormality of the thorax. IMPRESSION: 1. Acute comminuted fractures left proximal humeral neck and head. 2. No acute cardiopulmonary disease. 3. Moderately elevated right hemidiaphragm which may mask underlying right lower lobe pathology. Electronically signed by: Gonzalo Fairchild MD 03/09/2024 12:37 AM CDT Due to temporary technical issues with the PACS/Fluency reporting system, reports are being signed by the in house radiologist without review as a courtesy to ensure prompt reporting. The interpreting r adiologist is fully responsible for the content of the report.
--- NOTE | 2024-03-09 12:08 | RAD REPORT ---
EXAM DESCRIPTION: Humerus Left CLINICAL HISTORY: 73 years Female, fall;Pain TECHNIQUE: 2 views COMPARISON: None. FINDINGS: BONES/JOINT: Comminuted fracture proximal humeral neck and head. Glenohumeral disarticulat ion is suspected. Remainder of the left humerus is intact. Bones are demineralized. No focal lytic or blastic abnormality. SOFT TISSUES: Unremarkable. No radiopaque foreign body. IMPRESSION: 1. Comminuted fracture proximal humeral neck and head. 2. Glenohumeral disarticulation is suspected. Electronically signed by: Gonzalo Fairchild MD 03/09/2024 12:38 AM CDT Due to temporary technical issues with the PACS/Fluency reporting system, reports are being signed by the in house radiologist without review as a courtesy to ensure prompt reporting. The interpreting r adiologist is fully responsible for the content of the report.
== END 2024-03-09 01:12 | disposition home or self-care (01) ==
LOC: ER 23:10
DX: S42.212A Unspecified displaced fracture of surgical neck of left humerus, initial encounter for closed fracture (principal); S42.292A Other displaced fracture of upper end of left humerus, initial encounter for closed fracture; W18.30XA Fall on same level, unspecified, initial encounter; I10 Essential (primary) hypertension; Z88.1 Allergy status to other antibiotic agents
CPT/HCPCS: 71045